=== PATIENT | female | born 1960 | race Caucasian/White ===

== ENCOUNTER 2020-11-28 18:21 | Emergency (ER) | payer OTHER ==
[~2020-11-28] VITALS: Ht 172.7 cm; Wt 83.9 kg
[2020-11-28] MEDS ORDERED: FORTAMET500 MG (18:32)
[2020-11-28] MEDS ORDERED: TUSNEL LIQUID178 ML PO (20:53)
[2020-11-28] MEDS ORDERED: DOLOGEN CAPLET1 EACH PO (21:06)
[2020-11-29] MEDS ORDERED: ZYRTEC10 M3 PO (19:19)
[2020-11-29] MEDS ORDERED: FLONASE16 GM NS (19:19)
[2020-11-29] MEDS ORDERED: IPRAT-ALBUT 0.5-3 ML IH (22:06)
== END 2020-11-28 21:13 | disposition home or self-care (01) ==
LOC: ER 18:21
DX: N20.9 Urinary calculus, unspecified (principal); R05 Cough; Z03.818 Encounter for observation for suspected exposure to other biological agents ruled out

== ENCOUNTER → 2020-11-29 | Emergency (ER) | payer OTHER ==
[~2020-11-29] VITALS: Ht 172.7 cm; Wt 83.9 kg
[~2020-11-29] MED LIST: DOLOGEN CAPLET1 EACH PO; FLONASE16 GM NS; FORTAMET500 MG; IPRAT-ALBUT 0.5-3 ML IH; TUSNEL LIQUID178 ML PO; ZYRTEC10 M3 PO
== END | disposition home or self-care (01) ==
LOC: ER 19:02
DX: J20.9 Acute bronchitis, unspecified (principal)

== ENCOUNTER 2020-12-20 08:41 | Outpatient (CLI) | payer OTHER | END 2020-12-20 08:48 | disposition home or self-care (01) | LOC: RX STUDY 08:41 | DX: H21.89 Other specified disorders of iris and ciliary body (principal) ==

== ENCOUNTER 2021-02-02 11:02 | Outpatient (CLI) | payer OTHER | END 2021-02-02 11:09 | disposition home or self-care (01) | LOC: TOM 11:02 | PROVIDERS: ATTEND General Practice | DX: R05.3 Chronic cough (principal) ==

== ENCOUNTER 2021-04-07 20:59 | Emergency (ER) | payer OTHER ==
[~2021-04-07] VITALS: Ht 172.7 cm; Wt 84.8 kg
[2021-04-07] MEDS ORDERED: AMOX-CLAV 875-1 EAC1 PO (22:56)
[2021-04-07] MEDS ORDERED: DOLOGEN 325-11 EACH PO (22:56)
[2021-04-07] MEDS ORDERED: MEDROLPACK PO (23:06)
== END 2021-04-07 23:24 | disposition home or self-care (01) ==
LOC: ER 20:59
DX: J06.9 Acute upper respiratory infection, unspecified (principal); J32.9 Chronic sinusitis, unspecified; J40 Bronchitis, not specified as acute or chronic; Z88.6 Allergy status to analgesic agent

== ENCOUNTER 2024-02-23 13:27 | Emergency (ER) | payer OTHER ==
[~2024-02-23] VITALS: Ht 170.2 cm; Wt 86.2 kg
[~2024-02-23 13:27] MED LIST changes: +ALBUTEROL2.5 MG/3 M IH; +AMOX-CLAV 875-1 EAC1 PO; +BUDESONIDE0.5 MG/2 M IH; +DOLOGEN 325-11 EACH PO; +LIPITOR20 MG PO; +MEDROLPACK PO; +METFORMIN HCL500 M3; +ZESTRIL5 MG; +ZITHROMAX500 MG PO; +ZYNCOF 20-400120 ML PO
[2024-02-23] MEDS ORDERED: BUTALB/ACETAMINOPHEN/CAFFEINE 1 TAB TABLET PO ONE (16:15)
[2024-02-23 17:41] LABS: HEMATOCRIT 41.6 % (36.0-45.00); HEMOGLOBIN 13.3 g/dL (12.0-15.00); MEAN CELL VOLUME 80.4 fL (80.00-100.00); MEAN CORPUSCULAR HEMOGLOBIN 25.8 pg (27.00-32.0); PLATELET COUNT 349 K/uL (150-450); RED BLOOD COUNT 5.18 M/uL (4.00-6.00); RED CELL DISTRIBUTION WIDTH 16.1 % (11.5-14.5)
[2024-02-23 18:11] LABS: PH,URINE 5.5 (5.0-8.0); URINE APPEARANCE Clear; URINE BILIRRUBIN Negative (NEGATIVE); URINE BLOOD Negative; URINE COLOR Yellow; URINE GLUCOSE Negative (NEGATIVE); URINE KETONE Trace (NEGATIVE); URINE LEUKOCYTE Negative; URINE NITRATE Negative; URINE PROTEIN Negative (NEGATIVE); URINE UROBILINOGEN 0.2 E.U./dl
[2024-02-23 18:17] LABS: URINE BACTERIA 674.4 uL (0.0-1933); URINE EPITHELIAL CELLS 3.9 uL (0.0-38.8); URINE RBC 13.2 uL (0.0-20.8); URINE WBC 9.4 uL (0.0-23.2)
[2024-02-23 18:27] LABS: URINE CAST 0.14 uL (0.0-1.40)
[2024-02-23 18:43] LABS: proBNP 18 pg/mL (0-53.2)
[2024-02-23 18:46] LABS: TROPONIN I hs < 3.0 PG/ML (42.2-82.3)
[2024-02-23 18:50] LABS: ALBUMIN 3.8 gm/dL (3.4-5.0); BILIRUBIN TOTAL 0.3 mg/dL (0.3-1.2); CALCIUM 9.2 mg/dL (8.5-10.1); CREATININE SERUM 1.06 mg/dL (0.55-1.02); GFR 52.53; GLOBULINA 4.1 G/DL (2.4-3.5); POTASSIUM 3.86 mEq/L (3.5-5.1); TOTAL PROTEIN 7.9 gm/dL (6.4-8.2); TSH 1.07 uIU/mL (0.358-3.74)
[2024-02-23] MEDS ORDERED: hydrOXYzine PAMOATE 25 MG CAPSULE PO ONE (20:00)
== END 2024-02-23 20:09 | disposition home or self-care (01) ==
LOC: ER 13:27
PROVIDERS: General Practice
DX: R53.81 Other malaise (principal); R53.1 Weakness; R53.83 Other fatigue; I10 Essential (primary) hypertension; E11.9 Type 2 diabetes mellitus without complications; Z79.84 Long term (current) use of oral hypoglycemic drugs; Z88.6 Allergy status to analgesic agent